=== PATIENT | female | born 1955 | race Caucasian/White ===

== ENCOUNTER → 2024-06-15 08:06 | Outpatient (REF) | payer MEDICARE, SELFPAY | LOC: HWEVLT 08:06 | PROVIDERS: ATTENDING PHYSICIAN Radiology Vascular & Interventional Radiology | DX: I83.893 Varicose veins of bilateral lower extremities with other complications (principal) | CPT/HCPCS: 93970 ==

== ENCOUNTER 2025-02-01 13:59 | Emergency (ER) | payer MEDICARE, SELFPAY ==
[2025-02-01 14:14] VITALS: BP 145/93
[2025-02-01 16:00] VITALS: BP 124/85
--- NOTE | 2025-02-01 16:04 | ED.GENMED ---
History of Present Illness
General
Chief Complaint: Throat Problem
Time Seen by Provider: 02/01/25 15:13
History of Present Illness
History of Present Illness:
69-year-old female presents to the emergency department for evaluation of a possible oropharyngeal foreign body. She was eating chicken and felt as though she may have swallowed a bone that is now stuck in her throat. She is able to swallow saliva
but feels a foreign body sensation. No coughing
Review of Systems
Review of Systems
Allergies reviewed?: Yes
All Other Systems: ROS reviewed and negative except as documented in HPI and ROS
Phy Exam
Physical Exam
Physical Exam:
GEN: Well appearing, NAD, WDWN
HEENT: Oral mucosa moist, no scleral icterus, oropharynx clear
Cardiac: Regular rate
Lung: No respiratory distress, no tachypnea
MSK: No gross deformity or injuries
Skin: Good color, no pallor or jaundice, no rashes
Neuro: AO x3, moves all extremities freely
Psych: Calm, cooperative
Course
Orders/Labs/Results
Orders:
Orders
02/01/25 14:18
Soft Tissue, Neck [CR Soft Tissue Neck ] Urgent
Comment:
Reason For Exam: bone
02/01/25 15:30
CT Neck W/o Iv Contrast Urgent
Comment:
Reason For Exam: possible oropharyngeal FB
Vital Signs
Initial and Last Documented VS:
Initial Vital Signs
Temp Pulse Resp BP Pulse Ox
98.4 F 81 16 145/93 99
02/01/25 14:14 02/01/25 14:14 02/01/25 14:14 02/01/25 14:14 02/01/25 14:14
Last Documented Vital Signs
Temp Pulse Resp BP Pulse Ox
98.4 F 79 20 124/85 99
02/01/25 14:14 02/01/25 16:00 02/01/25 16:00 02/01/25 16:00 02/01/25 16:05
MDM/Problems Addressed
MDM/Problems Addressed:
Plain films and follow-up CT showed no evidence for foreign body. Likely a oropharyngeal abrasion causing her persistent symptoms. Suitable for discharge home
*Pulse Oximetry
SaO2: 99
Oxygen Mode of Delivery: Room air
Patient hypoxic: no
*Critical Care Note
Total Time (30-74mins, 75-104mins- exclusive of procedures): Not Applicable
ED Attending Note
-
Portions of this chart may have been created with voice recognition software.� Occasional wrong word or��sound alike� substitutions may have occurred due to the inherent limitations of voice recognition software.
Discharge Plan
Departure
Patient Disposition: Home (Routine Discharge)
Date of Disposition: 02/01/25
Time of Disposition: 16:04
Patient with high blood pressure during this ER visit?: No
Discharge Problem:
Foreign body sensation in throat
Referrals:
Pamela Conti MD [Family Provider]
Activity Restrictions/Additional Instructions:
There is no evidence of a foreign body in the esophagus
You likely have an abrasion to the esophageal lining, this will improve in 2-3 days
Eat and drink as normal
Follow up with ENT or GI in 1-2 weeks if symptoms persist
Interventions
Interventions:
*Risk Screen - Suicide Last Done: 02/01/25 14:14
*General Assessment Last Done: 02/01/25 16:15
*Neglect/Abuse Screening Last Done: 02/01/25 14:14
*ED COVID-19 Vaccine History Last Done: 02/01/25 16:15
*ED Influenza Vaccine History Last Done: 02/01/25 16:15
*Nursing Disposition Last Done: 02/01/25 16:23
ED-EENT Assessment Last Done: 02/01/25 16:15
ED- Pulmonary Assessment Last Done: 02/01/25 16:15
Discharge Date and Time
Discharge Date/Time: 02/01/25 16:24
Print Language: [place]
== END 2025-02-01 16:24 | disposition home or self-care (01) ==
LOC: EMR 13:59
PROVIDERS: EMERGENCY PHYSICIAN Emergency Medicine; FAMILY PHYSICIAN Family Medicine
DX: R09.A2 Foreign body sensation, throat (principal)
CPT/HCPCS: 99284; 70360; 70490